=== PATIENT | male | born 1975 | race Caucasian/White ===

== ENCOUNTER 2022-01-04 12:40 | Emergency (ER) | payer BC, OTHER ==
[~2022-01-04] VITALS: Ht 180.3 cm; Wt 91.2 kg
== END 2022-01-04 16:30 | disposition home or self-care (01) ==
LOC: ER 14:20
DX: M79.602 Pain in left arm (principal); X50.0XXA Overexertion from strenuous movement or load, initial encounter; Y92.89 Other specified places as the place of occurrence of the external cause; I10 Essential (primary) hypertension
CPT/HCPCS: 99283